=== PATIENT | male | born 1940 | race Caucasian/White ===

== ENCOUNTER 2019-04-24 13:54 | Inpatient (IN) | payer MEDICARE, OTHER ==
[2019-04-24 16:20] VITALS: BP 144/68
[2019-04-24] MEDS ORDERED: ASPIRIN ENTERIC COATED 325 MG TABLET.DR. PO ONE (18:00)
[2019-04-24] MEDS ORDERED: NAPR-677 PO (18:07)
[2019-04-24] MEDS ORDERED: HYDR-2761 PO (18:07)
[2019-04-24] MEDS ORDERED: ACET500T68 PO (18:07)
[2019-04-24] MEDS ORDERED: PRAV20TA PO (18:07)
[2019-04-24] MEDS ORDERED: HYDR-52 PO (18:07)
[2019-04-24] MEDS ORDERED: DOCU-109 PO (18:07)
[2019-04-24] MEDS ORDERED: ALBUTEROL SULFATE 2.5 MG/3 ML NEBU. NEB PRN (18:45)
--- NOTE | 2019-04-24 19:11 | PDOC1 ---
History and Physical Date of Admission Date of Admission DATE: 04/24/19 TIME: 19:08 History of Present Illness History of Present Illness pt awoke this AM with new difficulty speaking, unable to est. timeline. Pt went to ER at [facility] before noon. I was called for transfer to manage acute new CVA, timeline > 8 hours, pt is wearing back brace, recent spinal fracture, not operable he feels well, thinks his sympoms are improving since this AM Past Medical History Cardiovascular: HTN Musculoskeletal: low back pain Past Surgical History Past Surgical History: No pertinent history Family History Family History: No Significant Social History Smoke: No ALCOHOL: rare Drugs: None Current Medications Current Medications Current Medications Aspirin (Ecotrin) 325 mg 1X ONCE PO ; Start 04/24/19 at 18:00; Stop 04/24/19 at 18:01; Status DC Aspirin (Ecotrin) 325 mg DAILYWBKFT PO ; Start 04/25/19 at 08:00 Simvastatin (Zocor) 20 mg HS PO ; Start 04/24/19 at 21:00 Albuterol Sulfate (Ventolin Neb Soln) 2.5 mg PRN Q4HRS PRN NEB SHORTNESS OF BREATH; Start 04/24/19 at 18:45; Stop 04/24/19 at 18:47; Status DC Albuterol Sulfate (Ventolin Neb Soln) 2.5 mg RTQID NEB ; Start 04/24/19 at 20:00; Stop 04/24/19 at 18:47; Status DC Active Scripts Active Reported Colace (Docusate Sodium) 100 Mg Capsule 1 Cap PO BID 30 Days Allergies Allergies: Coded Allergies: No Known Drug Allergies (Unverified , 04/24/19) ROS General: No: Chills, Night Sweats, Fatigue, Malaise, Appetite, Other PSYCHOLOGICAL ROS: No: Anxiety, Behavioral Disorder, Concentration difficultie, Decreased libido, Depression, Disorientation, Hallucinations, Hostility, Irritablity, Memory difficulties, Mood Swings, Obsessive thoughts, Physical abuse, Sexual abuse, Sleep disturbances, Suicidal ideation, Other Eyes: No Blurry vision, No Decreased vision, No Double vision, No Dry eyes, No Excessive tearing, No Eye Pain, No Itchy Eyes, No Loss of vision, No Photophobia, No Scotomata, No Uses contacts, No Uses glasses, No Other HEENT: No: Heacaches, Visual Changes, Hearing change, Nasal congestion, Nasal discharge, Oral lesions, Sinus pain, Sore Throat, Epistaxis, Sneezing, Snoring, Tinnitus, Vertigo, Vocal changes, Other Respiratory: No: Cough, Hemoptysis, Orthopnea, Pleuritic Pain, Shortness of breath, SOB with excertion, Sputum Changes, Stridor, Tachypnea, Wheezing, Other Cardiovascular: No Chest Pain, No Palpitations, No Orthopnea, No Paroxysmal Noc. Dyspnea, No Edema, No Lt Headedness, No Other Gastrointestinal: No Nausea, No Vomiting, No Abdominal Pain, No Diarrhea, No Constipation, No Melena, No Hematochezia, No Other Genitourinary: No Dysuria, No Frequency, No Incontinence, No Hematuria, No Retention, No Discharge, No Urgency, No Pain, No Flank Pain, No Other, No , No , No , No , No , No , No Musculoskeletal: Yes Joint Stiffness Neurological: Yes Confusion, Yes Impaired Coord/balance, Yes Weakness, Yes Other; No Behavorial Changes, No Bowel/Bladder ControlChng, No Dizziness, No Gait Disturbance, No Headaches, No Memory Loss, No Numbness/Tingling, No Seizures, No Speech Problems, No Tremors, No Visual Changes Skin: No Dry Skin, No Eczema, No Hair Changes, No Lumps, No Mole Changes, No Mottling, No Nail Changes, No Pruritus, No Rash, No Skin Lesion Changes, No Other, No Acne Physical Exam General: Alert, Oriented X3, Cooperative, No acute distress, Other (cognitive decline, very slow to answer orientation, but was correct) HEENT: EOMI, Mucous membr. moist/pink Lungs: Normal air movement Heart: no gallops Abdomen: Normal bowel sounds, Soft Extremities: No cyanosis, No edema, Normal pulses Skin: No rashes, No breakdown, No significant lesion Neuro: Normal speech, Normal tone Psych/Mental Status: Mental status NL, Mood NL Vitals Vitals Vital Signs Date Time Temp Pulse Resp B/P (MAP) Pulse Ox O2 Delivery O2 Flow Rate FiO2 04/24/19 16:20 97.8 53 18 144/68 (93) 98 Room Air 97.8 VTE Prophylaxis Ordered VTE Prophylaxis Devices: No VTE Pharmacological Prophylaxi: Yes Assessment/Plan Assessment/Plan transfer for CVA and dysarthria symptoms, improved, TIA w.u CVA risk, echo, lipids, carotids, MRI neuro consult PT and ot and speech mild cognitive decline admit JUSTEN PEDERSON MD Apr 24, 2019 19:11
[2019-04-24] MEDS ORDERED: ALBUTEROL SULFATE 2.5 MG/3 ML NEBU. NEB SCH (20:00)
[2019-04-24 20:12] VITALS: BP 133/70
[2019-04-24] MEDS: SIMVASTATIN 20 MG TABLET PO SCH (20:56)
[2019-04-24 23:08] VITALS: BP 139/61
[2019-04-25 03:38] VITALS: BP 126/69
[2019-04-25 04:43] LABS: BASO % 1 % (0-3); EOS # 0.4 x10^3/uL (0.0-0.7); EOS % 5 % (0-3); HEMATOCRIT 42.7 % (39.0-53.0); HEMOGLOBIN 14.4 g/dL (13.0-17.5); LYMPH # 2.5 x10^3/uL (1.0-4.8); LYMPH % 33 % (24-48); MEAN CORPUSCULAR HEMOGLOBIN 31 pg (25-35); MEAN CORPUSCULAR HGB CONC 34 g/dL (31-37); MEAN CORPUSCULAR VOLUME 91 fL (79-100); MONO # 0.7 x10^3/uL (0.0-1.1); MONO % 9 % (0-9); NEUT # 4.2 x10^3/uL (1.8-7.7); NEUT % 53 % (31-73); PLATELET COUNT 181 x10^3/uL (140-400); RED BLOOD COUNT 4.67 x10^6/uL (4.30-5.70); WHITE BLOOD COUNT 7.8 x10^3/uL (4.0-11.0)
[2019-04-25 05:11] LABS: ALBUMIN 2.7 g/dL (3.4-5.0); ALBUMIN/GLOBULIN RATIO 0.9 (1.0-1.7); CALCIUM 8.2 mg/dL (8.5-10.1); CREATININE 1.1 mg/dL (0.7-1.3); GFR 64.4; POTASSIUM 3.6 mmol/L (3.5-5.1); TOTAL BILIRUBIN 0.6 mg/dL (0.2-1.0); TOTAL PROTEIN 5.8 g/dL (6.4-8.2)
[2019-04-25 07:30] VITALS: BP 140/68
[2019-04-25] MEDS: ASPIRIN ENTERIC COATED 325 MG TABLET.DR. PO SCH (08:00)
[2019-04-25] MEDS: ENOXAPARIN 40 MG/0.4 ML SYRINGE. SQ SCH (09:00)
[2019-04-25] MEDS ORDERED: ONDANSETRON PF 4 MG/2 ML VIAL. IVP PRN (09:30)
[2019-04-25] MEDS ORDERED: ACETAMINOPHEN 500 MG TABLET PO PRN (09:30)
[2019-04-25] MEDS: DOCUSATE SODIUM 100 MG CAPSULE. PO SCH ×2 (10:01→20:32)
[2019-04-25 11:00] VITALS: BP 132/60
--- NOTE | 2019-04-25 11:02 | PDOC ---
PROGRESS NOTES Chief Complaint Chief Complaint POssible TIA, dysarthria, resolved Dyslipidemia on statin with lipids at goal chronic back pain on back brace History of Present Illness History of Present Illness HE has no complaints HE claims he hails from [place] and is visiting his brother here Dysarthria resolved On ASA 325 started by admitting MD Lipids look great! VS great, home meds reconciled FULL CODE EH ahs a back brace - MRI compatible? PLANL Echo, US carotids, MRI brain Neuro consult Add PT.OT Cont ASA and statin Vitals Vitals Vital Signs Date Time Temp Pulse Resp B/P (MAP) Pulse Ox O2 Delivery O2 Flow Rate FiO2 04/25/19 07:30 98.1 47 18 140/68 (92) 96 Room Air 98.1 Physical Exam General: Alert, Oriented X3, Cooperative, No acute distress, Other (cognitive decline, very slow to answer orientation, but was correct) Heart: Regular rate, Normal S1, Normal S2 Lungs: Clear Abdomen: Normal bowel sounds, Soft Extremities: No cyanosis, No edema, Normal pulses Skin: No rashes, No breakdown, No significant lesion Labs LABS Laboratory Tests Test 04/25/19 03:15 White Blood Count 7.8 x10^3/uL (4.0-11.0) Red Blood Count 4.67 x10^6/uL (4.30-5.70) Hemoglobin 14.4 g/dL (13.0-17.5) Hematocrit 42.7 % (39.0-53.0) Mean Corpuscular Volume 91 fL (79-100) Mean Corpuscular Hemoglobin 31 pg (25-35) Mean Corpuscular Hemoglobin Concent 34 g/dL (31-37) Red Cell Distribution Width 14.0 % (11.5-14.5) Platelet Count 181 x10^3/uL (140-400) Neutrophils (%) (Auto) 53 % (31-73) Lymphocytes (%) (Auto) 33 % (24-48) Monocytes (%) (Auto) 9 % (0-9) Eosinophils (%) (Auto) 5 % (0-3) Basophils (%) (Auto) 1 % (0-3) Neutrophils # (Auto) 4.2 x10^3/uL (1.8-7.7) Lymphocytes # (Auto) 2.5 x10^3/uL (1.0-4.8) Monocytes # (Auto) 0.7 x10^3/uL (0.0-1.1) Eosinophils # (Auto) 0.4 x10^3/uL (0.0-0.7) Basophils # (Auto) 0.0 x10^3/uL (0.0-0.2) Sodium Level 144 mmol/L (136-145) Potassium Level 3.6 mmol/L (3.5-5.1) Chloride Level 108 mmol/L (98-107) Carbon Dioxide Level 26 mmol/L (21-32) Anion Gap 10 (6-14) Blood Urea Nitrogen 10 mg/dL (8-26) Creatinine 1.1 mg/dL (0.7-1.3) Estimated GFR (Cockcroft-Gault) 64.4 BUN/Creatinine Ratio 9 (6-20) Glucose Level 88 mg/dL (70-99) Calcium Level 8.2 mg/dL (8.5-10.1) Total Bilirubin 0.6 mg/dL (0.2-1.0) Aspartate Amino Transf (AST/SGOT) 13 U/L (15-37) Alanine Aminotransferase (ALT/SGPT) 8 U/L (16-63) Alkaline Phosphatase 113 U/L (46-116) Total Protein 5.8 g/dL (6.4-8.2) Albumin 2.7 g/dL (3.4-5.0) Albumin/Globulin Ratio 0.9 (1.0-1.7) Triglycerides Level 69 mg/dL (0-150) Cholesterol Level 135 mg/dL (0-200) LDL Cholesterol, Calculated 76 mg/dL (0-100) VLDL Cholesterol, Calculated 14 mg/dL (0-40) Non-HDL Cholesterol Calculated 90 mg/dL (0-129) HDL Cholesterol 45 mg/dL (40-60) Cholesterol/HDL Ratio 3.0 Review of Systems Review of Systems neg 14 pt reviewed with him Comment Review of Relevant I have reviewed the following items gera (where applicable) has been applied. Labs Laboratory Tests Test 04/25/19 03:15 White Blood Count 7.8 x10^3/uL (4.0-11.0) Red Blood Count 4.67 x10^6/uL (4.30-5.70) Hemoglobin 14.4 g/dL (13.0-17.5) Hematocrit 42.7 % (39.0-53.0) Mean Corpuscular Volume 91 fL (79-100) Mean Corpuscular Hemoglobin 31 pg (25-35) Mean Corpuscular Hemoglobin Concent 34 g/dL (31-37) Red Cell Distribution Width 14.0 % (11.5-14.5) Platelet Count 181 x10^3/uL (140-400) Neutrophils (%) (Auto) 53 % (31-73) Lymphocytes (%) (Auto) 33 % (24-48) Monocytes (%) (Auto) 9 % (0-9) Eosinophils (%) (Auto) 5 % (0-3) Basophils (%) (Auto) 1 % (0-3) Neutrophils # (Auto) 4.2 x10^3/uL (1.8-7.7) Lymphocytes # (Auto) 2.5 x10^3/uL (1.0-4.8) Monocytes # (Auto) 0.7 x10^3/uL (0.0-1.1) Eosinophils # (Auto) 0.4 x10^3/uL (0.0-0.7) Basophils # (Auto) 0.0 x10^3/uL (0.0-0.2) Sodium Level 144 mmol/L (136-145) Potassium Level 3.6 mmol/L (3.5-5.1) Chloride Level 108 mmol/L (98-107) Carbon Dioxide Level 26 mmol/L (21-32) Anion Gap 10 (6-14) Blood Urea Nitrogen 10 mg/dL (8-26) Creatinine 1.1 mg/dL (0.7-1.3) Estimated GFR (Cockcroft-Gault) 64.4 BUN/Creatinine Ratio 9 (6-20) Glucose Level 88 mg/dL (70-99) Calcium Level 8.2 mg/dL (8.5-10.1) Total Bilirubin 0.6 mg/dL (0.2-1.0) Aspartate Amino Transf (AST/SGOT) 13 U/L (15-37) Alanine Aminotransferase (ALT/SGPT) 8 U/L (16-63) Alkaline Phosphatase 113 U/L (46-116) Total Protein 5.8 g/dL (6.4-8.2) Albumin 2.7 g/dL (3.4-5.0) Albumin/Globulin Ratio 0.9 (1.0-1.7) Triglycerides Level 69 mg/dL (0-150) Cholesterol Level 135 mg/dL (0-200) LDL Cholesterol, Calculated 76 mg/dL (0-100) VLDL Cholesterol, Calculated 14 mg/dL (0-40) Non-HDL Cholesterol Calculated 90 mg/dL (0-129) HDL Cholesterol 45 mg/dL (40-60) Cholesterol/HDL Ratio 3.0 Laboratory Tests Test 04/25/19 03:15 White Blood Count 7.8 x10^3/uL (4.0-11.0) Red Blood Count 4.67 x10^6/uL (4.30-5.70) Hemoglobin 14.4 g/dL (13.0-17.5) Hematocrit 42.7 % (39.0-53.0) Mean Corpuscular Volume 91 fL (79-100) Mean Corpuscular Hemoglobin 31 pg (25-35) Mean Corpuscular Hemoglobin Concent 34 g/dL (31-37) Red Cell Distribution Width 14.0 % (11.5-14.5) Platelet Count 181 x10^3/uL (140-400) Neutrophils (%) (Auto) 53 % (31-73) Lymphocytes (%) (Auto) 33 % (24-48) Monocytes (%) (Auto) 9 % (0-9) Eosinophils (%) (Auto) 5 % (0-3) Basophils (%) (Auto) 1 % (0-3) Neutrophils # (Auto) 4.2 x10^3/uL (1.8-7.7) Lymphocytes # (Auto) 2.5 x10^3/uL (1.0-4.8) Monocytes # (Auto) 0.7 x10^3/uL (0.0-1.1) Eosinophils # (Auto) 0.4 x10^3/uL (0.0-0.7) Basophils # (Auto) 0.0 x10^3/uL (0.0-0.2) Sodium Level 144 mmol/L (136-145) Potassium Level 3.6 mmol/L (3.5-5.1) Chloride Level 108 mmol/L (98-107) Carbon Dioxide Level 26 mmol/L (21-32) Anion Gap 10 (6-14) Blood Urea Nitrogen 10 mg/dL (8-26) Creatinine 1.1 mg/dL (0.7-1.3) Estimated GFR (Cockcroft-Gault) 64.4 BUN/Creatinine Ratio 9 (6-20) Glucose Level 88 mg/dL (70-99) Calcium Level 8.2 mg/dL (8.5-10.1) Total Bilirubin 0.6 mg/dL (0.2-1.0) Aspartate Amino Transf (AST/SGOT) 13 U/L (15-37) Alanine Aminotransferase (ALT/SGPT) 8 U/L (16-63) Alkaline Phosphatase 113 U/L (46-116) Total Protein 5.8 g/dL (6.4-8.2) Albumin 2.7 g/dL (3.4-5.0) Albumin/Globulin Ratio 0.9 (1.0-1.7) Triglycerides Level 69 mg/dL (0-150) Cholesterol Level 135 mg/dL (0-200) LDL Cholesterol, Calculated 76 mg/dL (0-100) VLDL Cholesterol, Calculated 14 mg/dL (0-40) Non-HDL Cholesterol Calculated 90 mg/dL (0-129) HDL Cholesterol 45 mg/dL (40-60) Cholesterol/HDL Ratio 3.0 Medications Current Medications Aspirin (Ecotrin) 325 mg 1X ONCE PO Last administered on 04/24/19at 18:00; Start 04/24/19 at 18:00; Stop 04/24/19 at 18:01; Status DC Aspirin (Ecotrin) 325 mg DAILYWBKFT PO Last administered on 04/25/19at 08:00; Start 04/25/19 at 08:00 Simvastatin (Zocor) 20 mg HS PO Last administered on 04/24/19at 20:56; Start 04/24/19 at 21:00 Albuterol Sulfate (Ventolin Neb Soln) 2.5 mg PRN Q4HRS PRN NEB SHORTNESS OF BREATH; Start 04/24/19 at 18:45; Stop 04/24/19 at 18:47; Status DC Albuterol Sulfate (Ventolin Neb Soln) 2.5 mg RTQID NEB ; Start 04/24/19 at 20:00; Stop 04/24/19 at 18:47; Status DC Enoxaparin Sodium (Lovenox Per Pharmacy Prophylaxis Dosing) 1 each PRN DAILY PRN MC SEE COMMENTS; Start 04/25/19 at 09:00 Docusate Sodium (Colace) 100 mg BID PO Last administered on 04/25/19at 10:01; Start 04/25/19 at 09:00 Acetaminophen/ Hydrocodone Bitart (Lortab 5/325) 1 tab PRN Q4HRS PRN PO MODERATE PAIN, SEVERE PAIN; Start 04/25/19 at 07:00 Non-Formulary Medication (Pravastatin Sodium (Pravachol)) 1 tab QHS PO ; Start 04/25/19 at 21:00; Status UNV Enoxaparin Sodium (Lovenox 40mg Syringe) 40 mg DAILY SQ Last administered on 04/25/19at 09:00; Start 04/25/19 at 09:00 Acetaminophen (Tylenol) 500 mg PRN Q6HRS PRN PO MILD PAIN / TEMP; Start 04/25/19 at 09:30 Ondansetron HCl (Zofran) 4 mg PRN Q6HRS PRN IVP NAUSEA/VOMITING; Start 04/25/19 at 09:30 Active Scripts Active Reported Acetaminophen 500 Mg Tablet 1 Tab PO PRN Q4HRS PRN 15 Days Pravachol (Pravastatin Sodium) 20 Mg Tablet 1 Tab PO QHS Naproxen Sodium 550 Mg Tablet 500 Tab PO BID 15 Days Hydrocodone-Acetamin 10-325 mg (Hydrocodone/Acetaminophen) 1 Each Tablet 1 Each PO PRN Q4HRS Hydrocodone-Apap 5-325 (Hydrocodone Bit/Acetaminophen) 1 Tab Tablet 1 Tab PO PRN Q4HRS PRN Colace (Docusate Sodium) 100 Mg Capsule 1 Cap PO BID 30 Days Vitals/I & O Vital Sign - Last 24 Hours 04/24/19 04/24/19 04/24/19 04/24/19 15:45 16:20 20:00 20:12 Temp 97.8 97.5 97.8 97.5 Pulse 53 59 Resp 18 20 B/P (MAP) 144/68 (93) 133/70 (91) Pulse Ox 98 98 O2 Delivery Room Air Room Air Room Air Room Air 04/24/19 04/25/19 04/25/19 23:08 03:38 07:30 Temp 98.3 97.5 98.1 98.3 97.5 98.1 Pulse 54 52 47 Resp 20 18 18 B/P (MAP) 139/61 (87) 126/69 (88) 140/68 (92) Pulse Ox 98 97 96 O2 Delivery Room Air Room Air Room Air Intake and Output 04/24/19 04/24/19 04/25/19 15:00 23:00 07:00 Output Total 1200 ml Balance -1200 ml ANGELA BAILEY MD Apr 25, 2019 11:02
--- NOTE | 2019-04-25 11:03 | RAD ---
Examination: DOPPLER CAROTID BILAT History: CVA Comparison/Correlation: None Findings: The common, internal and external carotid arteries were examined by grayscale, color and spectral Doppler ultrasound. Flow in both vertebral arteries was antegrade and normal. Distal right internal carotid artery is not visualized. Tortuosity of arterial vasculature is seen. The following are the velocities and ratios in the carotid arteries on both sides: Mild atheromatous involvement and intimal thickening bilaterally seen. RIGHT ICA PV: 73.5cm/sec RIGHT CCA PV: 96.6cm/sec RIGHT ICA ED: 19.1cm/sec RIGHT IC/CCPV: 0.71 RIGHT VERTEBRAL: antegrade flow LEFT ICA PV: 86.8cm/sec LEFT CCA PV: 71.7cm/sec LEFT ICA ED: 34.1cm/sec LEFT IC/CCPV: 1.21 LEFT VERTEBRAL: antegrade flow <50% ICA Stenosis: PSV < 125cm/s (EDV < 40cm/s; SVR < 2.0) 50-69% ICA Stenosis: PSV < 125-229cm/s (EDV 40-99cm/s; SVR 2.0-3.9) >70% ICA Stenosis: PSV > 230cm/s (EDV >100cm/s; SVR >4.0) Impression: No hemodynamically significant stenosis although this exam is limited as the distal right internal carotid artery is not visualized. PQRS Compliance Statement - Stenosis calculations for CT, MR and conventional angiography are based upon measurement of the distal ICA diameter in accordance with the NASCET methodology. Stenosis calculations for carotid ultrasound studies are derived from validated velocity criteria which are known to correlate with the NASCET methodology. Electronically signed by: Rafa Allen MD (04/25/2019 11:00 AM) [facility]
[2019-04-25] MEDS: HYDROcodone/APAP 5/325MG 1 TAB TABLET PO PRN ×2 (12:32→20:33)
--- NOTE | 2019-04-25 14:00 | PDOC2 ---
NEUROLOGY CONSULT Date of Admission Date of Admission DATE: 04/25/19 TIME: 13:47 Reason for Consult Reason for Consult: IMPRESSION: Slurred speech. Difficult speaking. Metabolic encephalopathy. Cognitive impairment. RECOMMENDATIONS/PLAN: ASA 325 mg daily. Lipitor HS. Brain MRI w/o contrast. Lab: see orders. Speech and swallow evaluation. OT/PT. History of Present Illness This is an 78-year-old male patient with above medical diseases developed symptoms of slurred speech and difficulties with his speech. He awoke in the morning of 04/24/19 with new difficulty speaking and he was unable to est. He was brought to the ER at [facility]. He was not a candidate of TPA due to timeframe > 8 hours. He was then transferred to [facility] for further evaluation. He has recent spine fracture and has been wearing back brace. His symptoms are improving on 04/25/19. Past Medical History Cardiovascular: HTN Musculoskeletal: low back pain Past Surgical History No major surgery recently. Family History Non contributory. ALLERGY: NKDA MEDICATIONS: Refer to [facility] SOCIAL HISTORY: Denies current smoking, drinking, and illicit drug use. REVIEW OF SYSTEMS: Constitutional: No malnutrition, weight loss, cachexia. Head: No traumatic brain or head injury. Skin: No edema, or rash. Ear: No infection. Eyes: No vision loss or color blindness. Nose: No bleeding or purulent discharges. Hearing: Hearing decrease. Neck: No injury. Cardiac: HTN, HLD. Pulmonary: No COPD. GI: No GI ulcer, GI bleeding. Urinary/genital: UTI. Endocrinologic: No cousin face, craniofacial dysmorphism, polydactyly. Skeletomuscular: Generalized weakness. Neurological: see HP. Psychiatric: Denies drug use/abuse. Otherwise, not [id number] review of systems. PHYSICAL EXAMINATION: General appearance is in subacute distress. HEENT: Normocephalic and nontraumatic. Eyes, nose, ears, and throat are unremarkable. Neck is supple. No lymphadenopathy. No bruits are heard over the carotid artery. No crepitus. Cardiovascular: S1, S2, regular rate and rhythm. Pulmonary: Clear to auscultation bilaterally. Abdomen: Bowel sounds are positive. Abdomen is soft, nontender, and nondistended. Extremities: No rash, lesions, or edema. No restriction of range of motion NEUROLOGICAL EXAMINATION: Awake. Oriented partially to time, place and person. PERRL. EOMI. CN: no focal findings. Muscle tone: within normal. Muscle strength: 5- DTR: 2 Plantar reflex: Flexor response bilaterally Gait: not examined in chair. Sensory exam: no abnormal findings. No cerebellar signs elicited. F-T-N test fine. Current Medications Current Medications Current Medications Aspirin (Ecotrin) 325 mg 1X ONCE PO Last administered on 04/24/19at 18:00; Start 04/24/19 at 18:00; Stop 04/24/19 at 18:01; Status DC Aspirin (Ecotrin) 325 mg DAILYWBKFT PO Last administered on 04/25/19at 08:00; Start 04/25/19 at 08:00 Simvastatin (Zocor) 20 mg HS PO Last administered on 04/24/19at 20:56; Start 04/24/19 at 21:00 Albuterol Sulfate (Ventolin Neb Soln) 2.5 mg PRN Q4HRS PRN NEB SHORTNESS OF BREATH; Start 04/24/19 at 18:45; Stop 04/24/19 at 18:47; Status DC Albuterol Sulfate (Ventolin Neb Soln) 2.5 mg RTQID NEB ; Start 04/24/19 at 20:00; Stop 04/24/19 at 18:47; Status DC Enoxaparin Sodium (Lovenox Per Pharmacy Prophylaxis Dosing) 1 each PRN DAILY PRN MC SEE COMMENTS; Start 04/25/19 at 09:00 Docusate Sodium (Colace) 100 mg BID PO Last administered on 04/25/19at 10:01; Start 04/25/19 at 09:00 Acetaminophen/ Hydrocodone Bitart (Lortab 5/325) 1 tab PRN Q4HRS PRN PO MODERATE PAIN, SEVERE PAIN Last administered on 04/25/19at 12:32; Start 04/25/19 at 07:00 Non-Formulary Medication (Pravastatin Sodium (Pravachol)) 1 tab QHS PO ; Start 04/25/19 at 21:00; Status UNV Enoxaparin Sodium (Lovenox 40mg Syringe) 40 mg DAILY SQ Last administered on 04/25/19at 09:00; Start 04/25/19 at 09:00 Acetaminophen (Tylenol) 500 mg PRN Q6HRS PRN PO MILD PAIN / TEMP; Start 04/25/19 at 09:30 Ondansetron HCl (Zofran) 4 mg PRN Q6HRS PRN IVP NAUSEA/VOMITING; Start 04/25/19 at 09:30 Active Scripts Active Reported Acetaminophen 500 Mg Tablet 1 Tab PO PRN Q4HRS PRN 15 Days Pravachol (Pravastatin Sodium) 20 Mg Tablet 1 Tab PO QHS Naproxen Sodium 550 Mg Tablet 500 Tab PO BID 15 Days Hydrocodone-Acetamin 10-325 mg (Hydrocodone/Acetaminophen) 1 Each Tablet 1 Each PO PRN Q4HRS Hydrocodone-Apap 5-325 (Hydrocodone Bit/Acetaminophen) 1 Tab Tablet 1 Tab PO PRN Q4HRS PRN Colace (Docusate Sodium) 100 Mg Capsule 1 Cap PO BID 30 Days Allergies Allergies: Allergies Coded Allergies Type Severity Reaction Last Updated Verified No Known Drug Allergies 04/24/19 No ROS Review of System The patient denies any associated fevers, chills, headache, ear pain, rhinorrhea, sore throat, stiff neck, productive cough, chest pain, shortness of breath, back or flank pain, abdominal pain, nausea, vomiting, diarrhea, constipation, dysuria, rash, numbness, weakness, tingling, incontinence, difficulty ambulating, or diaphoresis. Physical Exam Physical Exam General: Well developed, well nourished, no acute distress, well appearing HEENT: Pupils equally round and reactive to light, EOMI, no discharge, normal conjunctiva Neck: Supple, no nuchal rigidity, no JVD, trachea midline, no tenderness Cardiac: RRR, no murmurs, no gallops, no rubs Chest/Lungs: CTAB, no wheeze, no rhonchi, no crackles Abdomen: soft, non-distended, no guarding, no peritoneal signs, non-tender Back: No tenderness Extremities: no edema, pulses intact, non-tender,capillary refill <3 sec bilateral upper and lower extremities, Neuro: Alert and oriented x 4, no focal deficits, normal speech Vitals Vitals: Vital Signs Date Time Temp Pulse Resp B/P (MAP) Pulse Ox O2 Delivery O2 Flow Rate FiO2 04/25/19 12:32 97 Room Air 04/25/19 11:00 97.5 53 18 132/60 (84) 97.5 Labs Labs Laboratory Tests Test 04/25/19 03:15 White Blood Count 7.8 x10^3/uL (4.0-11.0) Red Blood Count 4.67 x10^6/uL (4.30-5.70) Hemoglobin 14.4 g/dL (13.0-17.5) Hematocrit 42.7 % (39.0-53.0) Mean Corpuscular Volume 91 fL (79-100) Mean Corpuscular Hemoglobin 31 pg (25-35) Mean Corpuscular Hemoglobin Concent 34 g/dL (31-37) Red Cell Distribution Width 14.0 % (11.5-14.5) Platelet Count 181 x10^3/uL (140-400) Neutrophils (%) (Auto) 53 % (31-73) Lymphocytes (%) (Auto) 33 % (24-48) Monocytes (%) (Auto) 9 % (0-9) Eosinophils (%) (Auto) 5 % (0-3) Basophils (%) (Auto) 1 % (0-3) Neutrophils # (Auto) 4.2 x10^3/uL (1.8-7.7) Lymphocytes # (Auto) 2.5 x10^3/uL (1.0-4.8) Monocytes # (Auto) 0.7 x10^3/uL (0.0-1.1) Eosinophils # (Auto) 0.4 x10^3/uL (0.0-0.7) Basophils # (Auto) 0.0 x10^3/uL (0.0-0.2) Sodium Level 144 mmol/L (136-145) Potassium Level 3.6 mmol/L (3.5-5.1) Chloride Level 108 mmol/L (98-107) Carbon Dioxide Level 26 mmol/L (21-32) Anion Gap 10 (6-14) Blood Urea Nitrogen 10 mg/dL (8-26) Creatinine 1.1 mg/dL (0.7-1.3) Estimated GFR (Cockcroft-Gault) 64.4 BUN/Creatinine Ratio 9 (6-20) Glucose Level 88 mg/dL (70-99) Calcium Level 8.2 mg/dL (8.5-10.1) Total Bilirubin 0.6 mg/dL (0.2-1.0) Aspartate Amino Transf (AST/SGOT) 13 U/L (15-37) Alanine Aminotransferase (ALT/SGPT) 8 U/L (16-63) Alkaline Phosphatase 113 U/L (46-116) Total Protein 5.8 g/dL (6.4-8.2) Albumin 2.7 g/dL (3.4-5.0) Albumin/Globulin Ratio 0.9 (1.0-1.7) Triglycerides Level 69 mg/dL (0-150) Cholesterol Level 135 mg/dL (0-200) LDL Cholesterol, Calculated 76 mg/dL (0-100) VLDL Cholesterol, Calculated 14 mg/dL (0-40) Non-HDL Cholesterol Calculated 90 mg/dL (0-129) HDL Cholesterol 45 mg/dL (40-60) Cholesterol/HDL Ratio 3.0 Vitamin B12 Level 381 pg/mL (247-911) Thyroid Stimulating Hormone (TSH) 1.935 uIU/mL (0.358-3.74) Laboratory Tests Test 04/25/19 03:15 White Blood Count 7.8 x10^3/uL (4.0-11.0) Red Blood Count 4.67 x10^6/uL (4.30-5.70) Hemoglobin 14.4 g/dL (13.0-17.5) Hematocrit 42.7 % (39.0-53.0) Mean Corpuscular Volume 91 fL (79-100) Mean Corpuscular Hemoglobin 31 pg (25-35) Mean Corpuscular Hemoglobin Concent 34 g/dL (31-37) Red Cell Distribution Width 14.0 % (11.5-14.5) Platelet Count 181 x10^3/uL (140-400) Neutrophils (%) (Auto) 53 % (31-73) Lymphocytes (%) (Auto) 33 % (24-48) Monocytes (%) (Auto) 9 % (0-9) Eosinophils (%) (Auto) 5 % (0-3) Basophils (%) (Auto) 1 % (0-3) Neutrophils # (Auto) 4.2 x10^3/uL (1.8-7.7) Lymphocytes # (Auto) 2.5 x10^3/uL (1.0-4.8) Monocytes # (Auto) 0.7 x10^3/uL (0.0-1.1) Eosinophils # (Auto) 0.4 x10^3/uL (0.0-0.7) Basophils # (Auto) 0.0 x10^3/uL (0.0-0.2) Sodium Level 144 mmol/L (136-145) Potassium Level 3.6 mmol/L (3.5-5.1) Chloride Level 108 mmol/L (98-107) Carbon Dioxide Level 26 mmol/L (21-32) Anion Gap 10 (6-14) Blood Urea Nitrogen 10 mg/dL (8-26) Creatinine 1.1 mg/dL (0.7-1.3) Estimated GFR (Cockcroft-Gault) 64.4 BUN/Creatinine Ratio 9 (6-20) Glucose Level 88 mg/dL (70-99) Calcium Level 8.2 mg/dL (8.5-10.1) Total Bilirubin 0.6 mg/dL (0.2-1.0) Aspartate Amino Transf (AST/SGOT) 13 U/L (15-37) Alanine Aminotransferase (ALT/SGPT) 8 U/L (16-63) Alkaline Phosphatase 113 U/L (46-116) Total Protein 5.8 g/dL (6.4-8.2) Albumin 2.7 g/dL (3.4-5.0) Albumin/Globulin Ratio 0.9 (1.0-1.7) Triglycerides Level 69 mg/dL (0-150) Cholesterol Level 135 mg/dL (0-200) LDL Cholesterol, Calculated 76 mg/dL (0-100) VLDL Cholesterol, Calculated 14 mg/dL (0-40) Non-HDL Cholesterol Calculated 90 mg/dL (0-129) HDL Cholesterol 45 mg/dL (40-60) Cholesterol/HDL Ratio 3.0 Vitamin B12 Level 381 pg/mL (247-911) Thyroid Stimulating Hormone (TSH) 1.935 uIU/mL (0.358-3.74) SANDRA GALLARDO MD Apr 25, 2019 14:00
[2019-04-25 15:00] VITALS: BP 147/87
[2019-04-25 15:05] LABS: BILIRUBIN,URINE NEGATIVE (NEG); CLARITY,URINE CLEAR; COLOR,URINE YELLOW; NITRITE,URINE NEGATIVE (NEG); PROTEIN,URINE NEGATIVE (NEG-TRACE); UROBILINOGEN,URINE 0.2 mg/dL (0.2 mg/dL)
[2019-04-25 15:14] LABS: BACTERIA,URINE 0 /HPF (0-FEW); RBC,URINE OCC /HPF (0-2); WBC,URINE 0 /HPF (0-4)
--- NOTE | 2019-04-25 15:42 | RAD ---
BRAIN W/O CONTRAST Date: 04/25/2019 10:44 AM Indication: Slurred speech Comparison: CT 04/24/2019. Technique: Multiplanar multisequence MRI of the brain was performed without intravenous contrast using the standard protocol. Findings: No acute infarct. No acute or chronic hemorrhage. The ventricles are normal in size and configuration without hydrocephalus. Mild scattered FLAIR hyperintensities in the subcortical and periventricular deep white matter, a nonspecific finding, most commonly seen with chronic small vessel ischemic disease. Moderate generalized cerebral and cerebellar volume loss. The scalp and calvarium are normal. The pituitary and sella are normal. No Chiari malformation. Mild incompletely characterized degenerative spondylosis of the visualized upper cervical spine. The visualized orbits and globes are normal. The visualized paranasal sinuses are clear. Left greater than right mastoid fluid. Normal flow voids within the vertebral, basilar, and internal carotid arteries indicating patency. IMPRESSION: No acute infarct, hemorrhage, mass, or hydrocephalus. Mild chronic small vessel ischemic disease and moderate cerebral volume loss. Electronically signed by: Norm Valerio MD (04/25/2019 3:39 PM) [id number]
--- NOTE | 2019-04-25 15:59 | CARD ---
MR#: [id number] Date of Study: 04/25/2019 Ordering Physician: JUSTEN PEDERSON, Referring Physician: JUSTEN PEDERSON Tech: Shelby Alford SURESH APPROVED REPORT EXAM: Two-dimensional and M-mode echocardiogram with Doppler and color Doppler. Other Information Quality : Technically LimitedHR: 51bpm Rhythm : BradycardiaTechnically limited study due to body habitus. INDICATION CVA/TIA 2D DIMENSIONS RVDd3.1 (2.9-3.5cm)Left Atrium(2D)3.4 (1.6-4.0cm) IVSd1.0 (0.7-1.1cm)Aortic Root(2D)3.6 (2.0-3.7cm) LVDd4.8 (3.9-5.9cm)LVOT Diameter2.0 (1.8-2.4cm) PWd1.1 (0.7-1.1cm)LVDs3.3 (2.5-4.0cm) FS (%) 31.2 %SV62.6 ml LVEF(%)59.0 (>50%) Aortic Valve AoV Peak Arthur.127.0cm/sAoV VTI24.9cm AO Peak GR.6.5mmHgLVOT VTI 21.80cm AO Mean GR.3mmHgAVA (VTI)3.00cm2 Mitral Valve MV E Tvtaqxky09.6cm/sMV DECEL BOQC767su MV A Tsnuoxny75.0cm/sE/A Ratio0.8 MV A [id number] LEFT VENTRICLE The left ventricle is normal size. There is normal left ventricular wall thickness. The left ventricu lar systolic function is normal and the ejection fraction is within normal range. The Ejection Fracti on is 55-60%. There is normal LV segmental wall motion. Transmitral Doppler flow pattern is Grade I-a bnormal relaxation pattern. RIGHT VENTRICLE The right ventricle is normal size. There is normal right ventricular wall thickness. The right ventr icular systolic function is normal. ATRIA The left atrium size is normal. The right atrium size is normal. The interatrial septum is intact wit h no evidence for an atrial septal defect or patent foramen ovale as noted on 2-D or Doppler imaging. AORTIC VALVE The aortic valve is mildly calcified. The aortic valve is trileaflet. Doppler and Color Flow revealed trace to mild aortic regurgitation. There is no significant aortic valvular stenosis. MITRAL VALVE The mitral valve is thickened but opens well. There is no evidence of mitral valve prolapse. There is no mitral valve stenosis. Doppler and Color-flow revealed trace mitral regurgitation. TRICUSPID VALVE The tricuspid valve is normal in structure and function. Doppler and Color Flow revealed no tricuspid valve regurgitation noted. There is no tricuspid valve prolapse or vegetation. There is no tricuspid valve stenosis. PULMONIC VALVE The pulmonic valve is not well visualized. GREAT VESSELS The aortic root is normal in size. The ascending aorta is normal in size. The IVC was not visualized. PERICARDIAL EFFUSION There is no evidence of significant pericardial effusion. Critical Notification Critical Value: No <Conclusion> The left ventricular systolic function is normal and the ejection fraction is within normal range. Th e Ejection Fraction is 55-60%. There is normal LV segmental wall motion. Doppler and Color Flow revealed trace to mild aortic regurgitation. Signed by : Devan Rasheed, Electronically Approved : 04/25/2019 15:59:09
[2019-04-25 19:53] VITALS: BP 154/71
[2019-04-25] MEDS: SIMVASTATIN 20 MG TABLET PO SCH (20:32)
[2019-04-25] MEDS ORDERED: PRAVASTATIN SODIUM PO SCH (21:00)
[2019-04-25 23:47] VITALS: BP 143/76
[2019-04-26 03:35] VITALS: BP 159/74
[2019-04-26 07:00] VITALS: BP 158/79
[2019-04-26] MEDS ORDERED: HYDR-52 PO (07:50)
[2019-04-26] MEDS ORDERED: ASPI325T11 PO (07:50)
--- NOTE | 2019-04-26 07:50 | SNU/HH DC ---
DISCHARGE ORDERS DISCHARGE INFORMATION: DISCHARGE DATE: Apr 26, 2019 CODE STATUS: Code Status: Full HALF-WAY: SNF STAY <30 DAYS: Yes HOSPICE: HOSPICE: No HOSPICE EVAL & TREAT: No LTAC: ADMIT TO LTAC: No POST DISCHARGE ORDERS: ACTIVITY ORDERS: Resume previous activity DIET AFTER DISCHARGE: Regular CHECKS AFTER DISCHARGE: CHECKS AFTER DISCHARGE: Check blood press - daily FOLLOW-UP: PHYSICIAN FOLLOW-UP: pcp prn - tIA, neg CT, started on asa 325, lipids good TREATMENT/EQUIPMENT ORDERS: ADAPTIVE EQUIPMENT NEEDED: Front wheeled walker Physical Therapy For: Evalulation/Treatment Occupational Therapy For: Evaluation/Treatment DISCHARGE MEDICATIONS: Home Meds Active Scripts Aspirin (ASPIRIN EC) 325 Mg Tablet., 325 MG PO DAILYWBKFT for tia for 60 Days, #60 TAB.SR Prov:ANGELA BAILEY MD 04/26/19 Hydrocodone/Acetaminophen (Hydrocodone-Acetamin 10-325 mg) 1 Each Tablet, 1 EACH PO PRN Q4HRS for Pain, #20 TAB Prov:ANGELA BAILEY MD 04/26/19 Reported Medications Acetaminophen (ACETAMINOPHEN) 500 Mg Tablet, 1 TAB PO PRN Q4HRS PRN for pain or fever for 15 Days, #60 TAB 0 Refills 04/24/19 Pravastatin Sodium (PRAVACHOL) 20 Mg Tablet, 1 TAB PO QHS for HLD, #90 TAB 1 Refill 04/24/19 Hydrocodone Bit/Acetaminophen (HYDROCODONE-APAP 5-325 ) 1 Tab Tablet, 1 TAB PO PRN Q4HRS PRN for PAIN, TAB 0 Refills 04/24/19 Docusate Sodium (COLACE) 100 Mg Capsule, 1 CAP PO BID for Constipation for 30 Days, #60 CAP 0 Refills 04/24/19 Discontinued Reported Medications Naproxen Sodium (NAPROXEN SODIUM) 550 Mg Tablet, 500 TAB PO BID for arthritis for 15 Days, TAB 0 Refills 04/24/19 ANGELA BAILEY MD Apr 26, 2019 07:50
--- NOTE | 2019-04-26 08:36 | PDOC3 ---
Discharge Summary Visit Information Date of Admission: Apr 24, 2019 Date of Discharge: Apr 26, 2019 Admitting Diagnosis Comment: POssible TIA, dysarthria, resolved Dyslipidemia on statin with lipids at goal chronic back pain on back brace Brief Hospital Course Allergies Allergies Coded Allergies Type Severity Reaction Last Updated Verified No Known Drug Allergies 04/24/19 No Vital Signs Vital Signs Date Time Temp Pulse Resp B/P (MAP) Pulse Ox O2 Delivery O2 Flow Rate FiO2 04/26/19 07:00 98.2 48 16 158/79 (105) 98 Room Air 98.2 Lab Results Laboratory Tests Test 04/25/19 03:15 04/25/19 14:52 White Blood Count 7.8 x10^3/uL (4.0-11.0) Red Blood Count 4.67 x10^6/uL (4.30-5.70) Hemoglobin 14.4 g/dL (13.0-17.5) Hematocrit 42.7 % (39.0-53.0) Mean Corpuscular Volume 91 fL (79-100) Mean Corpuscular Hemoglobin 31 pg (25-35) Mean Corpuscular Hemoglobin Concent 34 g/dL (31-37) Red Cell Distribution Width 14.0 % (11.5-14.5) Platelet Count 181 x10^3/uL (140-400) Neutrophils (%) (Auto) 53 % (31-73) Lymphocytes (%) (Auto) 33 % (24-48) Monocytes (%) (Auto) 9 % (0-9) Eosinophils (%) (Auto) 5 % (0-3) Basophils (%) (Auto) 1 % (0-3) Neutrophils # (Auto) 4.2 x10^3/uL (1.8-7.7) Lymphocytes # (Auto) 2.5 x10^3/uL (1.0-4.8) Monocytes # (Auto) 0.7 x10^3/uL (0.0-1.1) Eosinophils # (Auto) 0.4 x10^3/uL (0.0-0.7) Basophils # (Auto) 0.0 x10^3/uL (0.0-0.2) Sodium Level 144 mmol/L (136-145) Potassium Level 3.6 mmol/L (3.5-5.1) Chloride Level 108 mmol/L (98-107) Carbon Dioxide Level 26 mmol/L (21-32) Anion Gap 10 (6-14) Blood Urea Nitrogen 10 mg/dL (8-26) Creatinine 1.1 mg/dL (0.7-1.3) Estimated GFR (Cockcroft-Gault) 64.4 BUN/Creatinine Ratio 9 (6-20) Glucose Level 88 mg/dL (70-99) Calcium Level 8.2 mg/dL (8.5-10.1) Total Bilirubin 0.6 mg/dL (0.2-1.0) Aspartate Amino Transf (AST/SGOT) 13 U/L (15-37) Alanine Aminotransferase (ALT/SGPT) 8 U/L (16-63) Alkaline Phosphatase 113 U/L (46-116) Total Protein 5.8 g/dL (6.4-8.2) Albumin 2.7 g/dL (3.4-5.0) Albumin/Globulin Ratio 0.9 (1.0-1.7) Triglycerides Level 69 mg/dL (0-150) Cholesterol Level 135 mg/dL (0-200) LDL Cholesterol, Calculated 76 mg/dL (0-100) VLDL Cholesterol, Calculated 14 mg/dL (0-40) Non-HDL Cholesterol Calculated 90 mg/dL (0-129) HDL Cholesterol 45 mg/dL (40-60) Cholesterol/HDL Ratio 3.0 Vitamin B12 Level 381 pg/mL (247-911) Thyroid Stimulating Hormone (TSH) 1.935 uIU/mL (0.358-3.74) Urine Collection Type Unknown Urine Color Yellow Urine Clarity Clear Urine pH 6.0 Urine Specific [place] 1.015 Urine Protein Negative mg/dL (NEG-TRACE) Urine Glucose (UA) Negative mg/dL (NEG) Urine Ketones (Stick) Negative mg/dL (NEG) Urine Blood Negative (NEG) Urine Nitrite Negative (NEG) Urine Bilirubin Negative (NEG) Urine Urobilinogen Dipstick 0.2 mg/dL (0.2 mg/dL) Urine Leukocyte Esterase Negative (NEG) Urine RBC Occ /HPF (0-2) Urine WBC 0 /HPF (0-4) Urine Bacteria 0 /HPF (0-FEW) Urine Mucus Mod /LPF Laboratory Tests Test 04/25/19 14:52 Urine Collection Type Unknown Urine Color Yellow Urine Clarity Clear Urine pH 6.0 Urine Specific [place] 1.015 Urine Protein Negative mg/dL (NEG-TRACE) Urine Glucose (UA) Negative mg/dL (NEG) Urine Ketones (Stick) Negative mg/dL (NEG) Urine Blood Negative (NEG) Urine Nitrite Negative (NEG) Urine Bilirubin Negative (NEG) Urine Urobilinogen Dipstick 0.2 mg/dL (0.2 mg/dL) Urine Leukocyte Esterase Negative (NEG) Urine RBC Occ /HPF (0-2) Urine WBC 0 /HPF (0-4) Urine Bacteria 0 /HPF (0-FEW) Urine Mucus Mod /LPF Brief Hospital Course Mr. Quintana is a 78 [facility] who came in for dysarthria but sxs resolved at ER and MRI neg, Lipds great, VS not high. [facility]ck to [facility] today on ASA 325 and cont home statin (working well). FULL CODE,. Can be confused but is calm, COnsulT; neuro Proc; CT head, mri [place] Echo - pending US carotids neg Pt seen and examined, dc < 30 Discharge Information Condition at Discharge: Improved, Stable Disposition/Orders: Other (snu) Scheduled Aspirin (Aspirin Ec) 325 Mg Tablet.dr, 325 MG PO DAILYWBKFT for tia for 60 Days, #60 Prescribed by: ANGELA BAILEY on 04/26/19 0750 Docusate Sodium (Colace) 100 Mg Capsule, 1 CAP PO BID for Constipation for 30 Days, #60 Ref 0 (Reported) Entered as Reported by: FREDY LUONG RN on 04/24/191806 Last Taken: Unknown Dose on 04/23/19 Last Action: Continued on 04/25/19 0650 by JUSTEN PEDERSON Hydrocodone/Acetaminophen (Hydrocodone-Acetamin 10-325 mg) 1 Each Tablet, 1 EACH PO PRN Q4HRS for Pain, #20 Prescribed by: ANGELA BAILEY on 04/26/19 0750 Pravastatin Sodium (Pravachol) 20 Mg Tablet, 1 TAB PO QHS for HLD, #90 Ref 1 (Reported) Entered as Reported by: FREDY LUONG RN on 04/24/191806 Last Taken: Unknown Dose on 04/23/19 Last Action: Converted on 04/25/19 0650 by JUSTEN PEDERSON Scheduled PRN Acetaminophen (Acetaminophen) 500 Mg Tablet, 1 TAB PO PRN Q4HRS PRN for pain or fever for 15 Days, #60 Ref 0 (Reported) Entered as Reported by: FREDY LUONG RN on 04/24/191806 Last Taken: Unknown Dose on 04/23/19 Last Action: HELD on 04/25/19649 by JUSTEN PEDERSON Hydrocodone Bit/Acetaminophen (Hydrocodone-Apap 5-325 ) 1 Tab Tablet, 1 TAB PO PRN Q4HRS PRN for PAIN, Ref 0 (Reported) Entered as Reported by: FREDY LUONG RN on 04/24/191806 Last Taken: Unknown Dose on 04/23/19 Last Action: Continued on 04/25/19649 by JUSTEN PEDERSON Discontinued Medications Naproxen Sodium (Naproxen Sodium) 550 Mg Tablet, 500 TAB PO BID for arthritis for 15 Days, Ref 0 (Reported) Entered as Reported by: FREDY LUONG RN on 04/24/191806 Last Taken: Unknown Dose on 04/23/19 Last Action: HELD on 04/25/1950 by ANGELA ALBRECHT MD Apr 26, 2019 08:35
[2019-04-26] MEDS: DOCUSATE SODIUM 100 MG CAPSULE. PO SCH (10:16)
[2019-04-26] MEDS: ASPIRIN ENTERIC COATED 325 MG TABLET.DR. PO SCH (10:16)
[2019-04-26] MEDS: ENOXAPARIN 40 MG/0.4 ML SYRINGE. SQ SCH (10:17)
[2019-04-26] MEDS: HYDROcodone/APAP 5/325MG 1 TAB TABLET PO PRN (10:35)
[2019-04-26 10:54] VITALS: BP 122/74
--- NOTE | 2019-04-26 13:29 | NUR ---
Pt escorted out to vehicle by Demetrio with [employer]. IV discontinued. Report given to
--- NOTE | 2019-04-26 13:30 | NUR ---
Report given to Francesca at the nurse's station at [facility]. Who was amazed he walks. Informed he still needs to use a walker and work with PT.
--- NOTE | 2019-04-26 14:02 | NUR ---
SW following pt for dc planning. Pt is LTC resident at [facility]. Aurea from [facility] requested if pt is able to transfer to [facility] in [place] and JOAO explained pt has dc order to return back to their facility and they will need to work on transfer after pt returns back to them. Orders faxed and pt will transport via facility arranged w/c van between [phone]. Packet on chart. RN and pt's brother Bill notified and agreeable with plans.
--- NOTE | 2019-04-26 17:43 | PDOC ---
PROGRESS NOTES Assessment Assessment Slurred speech. Difficult speaking. Metabolic encephalopathy. Cognitive impairment. Spine fracture per docu. No evidence of acute CVA this time. RECOMMENDATIONS/PLAN: Continue ASA 325 mg daily. Continue Lipitor HS. OT/PT. FU with PCP. History of Present Illness This is an 78-year-old male patient with above medical diseases developed symptoms of slurred speech and difficulties with his speech. He awoke in the morning of 04/24/19 with new difficulty speaking and he was unable to est. He was brought to the ER at [facility]. He was not a candidate of TPA due to timeframe > 8 hours. He was then transferred to [facility] for further evaluation. He has recent spine fracture and has been wearing back brace. His symptoms are improved on 04/26/19. Past Medical History Cardiovascular: HTN Musculoskeletal: low back pain Past Surgical History No major surgery recently. Family History Non contributory. ALLERGY: NKDA MEDICATIONS: Refer to [facility] SOCIAL HISTORY: Denies current smoking, drinking, and illicit drug use. REVIEW OF SYSTEMS: Constitutional: No malnutrition, weight loss, cachexia. Head: No traumatic brain or head injury. Skin: No edema, or rash. Ear: No infection. Eyes: No vision loss or color blindness. Nose: No bleeding or purulent discharges. Hearing: Hearing decrease. Neck: No injury. Cardiac: HTN, HLD. Pulmonary: No COPD. GI: No GI ulcer, GI bleeding. Urinary/genital: UTI. Endocrinologic: No cousin face, craniofacial dysmorphism, polydactyly. Skeletomuscular: Generalized weakness. Neurological: see HP. Psychiatric: Denies drug use/abuse. Otherwise, not [id number] review of systems. PHYSICAL EXAMINATION: General appearance is in subacute distress. HEENT: Normocephalic and nontraumatic. Eyes, nose, ears, and throat are unremarkable. Neck is supple. No lymphadenopathy. No bruits are heard over the carotid artery. No crepitus. Cardiovascular: S1, S2, regular rate and rhythm. Pulmonary: Clear to auscultation bilaterally. Abdomen: Bowel sounds are positive. Abdomen is soft, nontender, and nondistended. Extremities: No rash, lesions, or edema. No restriction of range of motion NEUROLOGICAL EXAMINATION: Awake. Oriented partially to time, place and person. PERRL. EOMI. CN: no focal findings. Muscle tone: within normal. Muscle strength: 5 DTR: 2 Plantar reflex: Flexor response bilaterally Gait: Able to walk with a walker. Sensory exam: no abnormal findings. No cerebellar signs elicited. F-T-N test fine. Objective Objective Vital Signs Date Time Temp Pulse Resp B/P (MAP) Pulse Ox O2 Delivery O2 Flow Rate FiO2 04/26/19 12:00 99 Room Air 04/26/19 10:54 97.5 52 14 122/74 (90) 97.5 Intake and Output 04/26/19 07:00 Intake Total 730 ml Output Total 700 ml Balance 30 ml Intake Oral 730 ml Output Urine Total 700 ml # Voids 6 Vitals Signs Vitals VS - Last 72 Hours, by Label Date Time Temp Pulse Resp B/P (MAP) Pulse Ox O2 Delivery O2 Flow Rate FiO2 04/26/19 12:00 99 Room Air 04/26/19 10:54 97.5 52 14 122/74 (90) 99 Room Air 97.5 04/26/19 10:35 98 Room Air 04/26/19 08:00 Room Air 04/26/19 07:00 98.2 48 16 158/79 (105) 98 Room Air 98.2 04/26/19 03:35 97.7 51 20 159/74 (102) 98 Room Air 97.7 04/25/19 23:47 97.6 47 18 143/76 (98) 96 Room Air 97.6 04/25/19 21:33 16 99 Room Air 04/25/19 20:33 18 99 Room Air 04/25/19 20:00 Room Air 04/25/19 19:53 97.8 49 20 154/71 (98) 99 Room Air 97.8 04/25/19 15:00 97.4 55 17 147/87 (107) 98 Room Air 97.4 04/25/19 14:59 97 Room Air 04/25/19 12:32 97 Room Air 04/25/19 11:00 97.5 53 18 132/60 (84) 97 Room Air 97.5 04/25/19 08:00 Room Air 04/25/19 07:30 98.1 47 18 140/68 (92) 96 Room Air 98.1 Medication Medications Current Medications Non-Formulary Medication (Pravastatin Sodium (Pravachol)) 1 tab QHS PO ; Start 04/25/19 at 21:00; Status UNV Comment Review of Relevant I have reviewed the following items gera (where applicable) has been applied. SANDRA GALLARDO MD Apr 26, 2019 17:43
== END 2019-04-26 13:30 | disposition home or self-care (01) | DRG 69 ==
LOC: 6 SOUTH 15:46
PROVIDERS: ADMIT Internal Medicine; ATTEND Internal Medicine
DX: G45.9 Transient cerebral ischemic attack, unspecified (principal); G93.41 Metabolic encephalopathy; E78.5 Hyperlipidemia, unspecified; G89.29 Other chronic pain; I10 Essential (primary) hypertension; K59.00 Constipation, unspecified; M19.90 Unspecified osteoarthritis, unspecified site; Z79.82 Long term (current) use of aspirin
CPT/HCPCS: 36415; 70551; 80053; 80061; 81001; 82607; 84443; 85025; 93306; 93880; J1650; 92610; 97116; 97535; G0378